=== PATIENT | female | born 1985 | race Hispanic/Latino ===

== ENCOUNTER 2016-10-20 14:49 | Emergency (ER) | payer OTHER ==
[2016-10-20 14:50] VITALS: BMI 32.5
[2016-10-20 15:02] VITALS: BP 96/60; PULSE 86; RESP 14; TEMP 97.9; O2SAT 97
--- NOTE | 2016-10-20 15:38 | ED PDOC ---
HPI: General Adult Time Seen by Provider: 10/20/16 14:55 Chief Complaint (Nursing): Abdominal Pain Chief Complaint (Provider): Requst for test History Per: Patient History/Exam Limitations: no limitations Additional Complaint(s): Marlena Castro is a 30 y/o female, with a past medical history of abnomral menses, presenting to the ER on 10/20/2016 with a request for a test. Patient reports she had normal menses September 06, followed by episodes of light bleeding from September 29-October 01. She states her bleeding stopped one day but then appeared again on October 09. Patient further states she believed to be after she took a test two weeks ago. However, she took a repeat test three days ago which came back negative. Today, she requests to have another test performed to see if shes . She denies any fever, nausea, vomiting or diarrhea, but notes having intermittent suprapubic discomfort. Patient currently does not have abdominal pain and did not take any pain medications prior to arrival. Past Medical History Reviewed: Historical Data, Nursing Documentation, Vital Signs Vital Signs: Last Vital Signs Temp 97.9 F 10/20/16 15:02 Pulse 86 10/20/16 15:02 Resp 14 10/20/16 15:02 BP 96/60 L 10/20/16 15:02 Pulse Ox 97 10/20/16 15:41 - Medical History Other PMH: abnormal menses - Surgical History Surgical History: No Surg Hx - Family History Family History: States: Unknown Family Hx - Social History Current smoker - smoking cessation education provided: No Alcohol: None Drugs: Denies - Home Medications Home Medications: Ambulatory Orders Medication Instructions Recorded Naproxen 500 mg PO BID #20 tab 09/14/15 - Allergies Allergies/Adverse Reactions: Allergies Allergy/AdvReac Type Severity Reaction Status Date / Time No Known Allergies Allergy Verified 01/25/14 12:44 Review of Systems ROS Statement: Except As Marked, All Systems Reviewed And Found Negative Constitutional: Negative for: Fever Gastrointestinal: Negative for: Nausea, Vomiting, Diarrhea Physical Exam - Reviewed Nursing Documentation Reviewed: Yes Vital Signs Reviewed: Yes - Physical Exam Appears: Positive for: Non-toxic, No Acute Distress Head Exam: Positive for: ATRAUMATIC, NORMOCEPHALIC Skin: Positive for: Normal Color. Negative for: Rash Eye Exam: Positive for: Normal appearance Neck: Positive for: Normal Cardiovascular/Chest: Positive for: Regular Rate, Rhythm. Negative for: Murmur Respiratory: Positive for: Normal Breath Sounds. Negative for: Respiratory Distress Gastrointestinal/Abdominal: Positive for: Normal Exam, Soft. Negative for: Tenderness Extremity: Positive for: Normal ROM. Negative for: Deformity, Swelling Neurologic/Psych: Positive for: Alert, Oriented. Negative for: Motor/Sensory Deficits - ECG O2 Sat by Pulse Oximetry: 97 Medical Decision Making Medical Decision Makin:55 Initial Impression- 30 y/o female with request for test Initial Plan- * Urine * Urine Dip UPreg and UDip reviewed, both show no acute findings. Pt is stable for routine discharge. Advised pt to schedule a follow-up with her OBGYN within 2-3 days. Clinical Impression- Abnormal menses Documented by Rachelle Terrell, acting as a scribe for Мария Rojas PA-C All medical record entries made by the Scribe were at my direction and personally dictated by me. I have reviewed the chart and agree that the record accurately reflects my personal performance of the history, physical exam, medical decision making, and the department course for this patient. I have also personally directed, reviewed, and agree with the discharge instructions and disposition. Disposition - Clinical Impression Clinical Impression: Abnormal menses - Disposition Disposition: Routine/Home Disposition Time: 16:42 Condition: STABLE Additional Instructions: Please follow-up with ANALYTICAL STRATEGIST. Instructions: Menorrhagia (ED) Forms: [facility] (Occitan)
== END 2016-10-20 16:11 | disposition home or self-care (01) ==
LOC: H.ER 14:49
DX: N92.6 Irregular menstruation, unspecified (principal)

== ENCOUNTER 2017-12-22 03:04 | Emergency (ER) | payer OTHER ==
[2017-12-22 03:14] VITALS: BP 121/71; PULSE 75; RESP 18; TEMP 99.1; O2SAT 100
[2017-12-22] MEDS ORDERED: Simethicone 80 mg Chewtab PO STA (03:50)
--- NOTE | 2017-12-22 04:12 | ED PDOC ---
HPI: Abdomen Time Seen by Provider: 12/22/17 03:14 Chief Complaint (Nursing): Abdominal Pain Chief Complaint (Provider): Back pain, abdominal pain History Per: Patient History/Exam Limitations: no limitations Onset/Duration Of Symptoms: Hrs (today) Location Of Pain/Discomfort: RUQ Quality Of Discomfort: Sharp Additional Complaint(s): Marlena Castro, a 32 year old female with past medical history of cholecystectomy, presents to the emergency room with back pain and RUQ pain. Patient states she woke up in the middle of the night with right upper back pain and RUQ pain she describes as sharp and wanted to vomit but didn't. She endorses constipation and is seeing a gastroenterolgoist for it, denies fever, diarrhea or urinary symptoms. No further medical complaints Past Medical History Reviewed: Historical Data, Nursing Documentation, Vital Signs Vital Signs: Last Vital Signs Temp 99.1 F 12/22/17 03:11 Pulse 75 12/22/17 03:11 Resp 18 12/22/17 03:11 BP 121/71 12/22/17 03:11 Pulse Ox 100 12/22/17 03:11 - Medical History PMH: Gastritis, Gall Bladder Disease, TIA (2015/DUE TO CONTROL IMPLANON/PER PT.) Denies: Chronic Kidney Disease - Surgical History Surgical History: Cholecystectomy (lap arvin 12/19/2016) - Family History Family History: States: Unknown Family Hx - Home Medications Home Medications: Ambulatory Orders Medication Instructions Recorded Docusate [Colace] 1 tab PO Q6 PRN 12/26/16 oxyCODONE/Acetaminophen [Percocet 1 tab PO Q8 PRN 12/26/16 5/325 mg Tab] Docusate Sodium [Dulcolax Stool 100 mg PO DAILY #12 capsule 12/22/17 Softener] Sod Phos,M-B/Na Phos,Di-Ba [Fleet 133 ml RC DAILY #5 enema 12/22/17 Enema] - Allergies Allergies/Adverse Reactions: Allergies Allergy/AdvReac Type Severity Reaction Status Date / Time Iodinated Contrast- Oral and Allergy Intermediate RASH Verified 12/26/16 17:24 IV Dye Review of Systems ROS Statement: Except As Marked, All Systems Reviewed And Found Negative Constitutional: Negative for: Fever Gastrointestinal: Positive for: Abdominal Pain (RUQ). Negative for: Vomiting (felt she had to but didn't), Diarrhea, Constipation Genitourinary Female: Negative for: Dysuria, Frequency, Incontinence, Hematuria Musculoskeletal: Positive for: Back Pain (right upper) Physical Exam - Reviewed Nursing Documentation Reviewed: Yes Vital Signs Reviewed: Yes - Physical Exam Appears: Positive for: Well, Non-toxic, No Acute Distress Head Exam: Positive for: ATRAUMATIC, NORMAL INSPECTION, NORMOCEPHALIC Skin: Positive for: Normal Color, Warm, DRY Eye Exam: Positive for: EOMI, Normal appearance, PERRL ENT: Positive for: Normal ENT Inspection Neck: Positive for: Normal, Painless ROM Cardiovascular/Chest: Positive for: Regular Rate, Rhythm Respiratory: Positive for: Normal Breath Sounds. Negative for: Respiratory Distress Gastrointestinal/Abdominal: Positive for: Tenderness (right flank, RUQ). Negative for: Guarding, Rebound Back: Positive for: Other (right upper back tenderness) Extremity: Positive for: Normal ROM Neurologic/Psych: Positive for: Alert, Oriented - ECG O2 Sat by Pulse Oximetry: 100 (RA) Pulse Ox Interpretation: Normal Medical Decision Making Medical Decision Making: Time: 3:14 A/P: patient s/p cholecystectomy presenting with abdominal pain, not having obstructive symptoms, possible gas vs musculoskeletal pain, less likely kidney stones --Urine --Urine dipstick --Obstructive series --Motrin 600 mg PO --Mylicon 80 mg PO 545AM --Patient had BM and felt a lot better --Xray shows stool burden --Will discharge with stool softener and enema --Advised to followup with Dr. Georges and GI Scribe Attestation: Documented by Valerie Acuña, acting as a scribe for Luigi Foreman MD. Provider Scribe Attestation: All medical record entries made by the Scribe were at my direction and personally dictated by me. I have reviewed the chart and agree that the record accurately reflects my personal performance of the history, physical exam, medical decision making, and the department course for this patient. I have also personally directed, reviewed, and agree with the discharge instructions and disposition. Disposition - Clinical Impression Clinical Impression: Constipation - Patient ED Disposition Is Patient to be Admitted: No - Disposition Referrals: Jovi Georges MD [Family Provider] - Disposition: Routine/Home Disposition Time: 05:49 Condition: IMPROVED Prescriptions: Docusate Sodium [Dulcolax Stool Softener] 100 mg PO DAILY #12 capsule Sod Phos,M-B/Na Phos,Di-Ba [Fleet Enema] 133 ml RC DAILY #5 enema Instructions: Constipation in Adults Forms: [facility] (Mosotho), [facility] School/Work Excuse Print Language: CITIZEN OF [place]
--- NOTE | 2017-12-22 10:00 | RAD ---
Date of service: 12/22/2017 PROCEDURE: Radiographs of the chest and abdomen (obstructive series) HISTORY: RUQ pain, back pain, hx of cholecystectomy COMPARISON: No prior. TECHNIQUE: AP radiograph of the chest, with upright and supine radiographs of the abdomen. FINDINGS: CHEST: Lungs: Clear. Cardiovascular: Normal size heart. No pulmonary vascular congestion. Pleura: No pleural fluid. No pneumothorax. Other findings: None. ABDOMEN AND PELVIS: Bowel: Unremarkable bowel gas pattern. No evidence of mechanical obstruction. Free air: None. Bones: Unremarkable. Other findings: No abnormal intra-abdominal calcifications identified. IMPRESSION: Unremarkable radiographs of chest and abdomen. No evidence of mechanical bowel obstruction.
== END 2017-12-22 06:22 | disposition home or self-care (01) ==
LOC: H.ER 03:04
DX: K59.00 Constipation, unspecified (principal)

== ENCOUNTER 2018-07-23 16:51 | Emergency (ER) | payer OTHER ==
[2018-07-23 17:45] VITALS: BP 105/70; PULSE 94; RESP 16; TEMP 98.4; O2SAT 99; BMI 32.2
--- NOTE | 2018-07-23 18:09 | ED PDOC ---
HPI: Headache Time Seen by Provider: 07/23/18 17:54 Chief Complaint (Nursing): Headache Chief Complaint (Provider): Headache History Per: Patient History/Exam Limitations: no limitations Onset/Duration Of Symptoms: Days (x3) Current Symptoms Are (Timing): Still Present Additional Complaint(s): Patient is a 32 y/o female with no significant PMHx who presents to the ED for evaluation of a headache for the past three days, primarily on the left side of her head, from eye to neck. Patient complains of associative symptoms including photophobia and throat pain. patient reports she has been taking Motrin 800 with relief, last dose this morning. Patient indicated the pain comes and goes but has been continuous since 13:00 today, thus, prompting her ED visit. Pt also notes she used to get migraines that feel similar to this. Patient denies vision changes, decrease in appetite, urinary symptoms, nausea or vomiting, fever, and cough. She is currently in the ER with her son who has been sick and she is stressed. PCP: None Provided Past Medical History Reviewed: Historical Data, Nursing Documentation, Vital Signs Vital Signs: Last Vital Signs Temp 98.4 F 07/23/18 17:45 Pulse 94 H 07/23/18 17:45 Resp 16 07/23/18 17:45 BP 105/70 07/23/18 17:45 Pulse Ox 99 07/23/18 17:45 Primary Care Provider: Sylvia Garcia - Medical History PMH: Gastritis, Gall Bladder Disease, TIA (2015/DUE TO CONTROL IMPLANON/PER PT.) Denies: Chronic Kidney Disease - Surgical History Surgical History: Cholecystectomy (lap arvin 12/19/2016) - Family History Family History: States: Unknown Family Hx - Home Medications Home Medications: Ambulatory Orders Medication Instructions Recorded Docusate [Colace] 1 tab PO Q6 PRN 12/26/16 oxyCODONE/Acetaminophen [Percocet 1 tab PO Q8 PRN 12/26/16 5/325 mg Tab] Docusate Sodium [Dulcolax Stool 100 mg PO DAILY #12 capsule 12/22/17 Softener] Sod Phos,M-B/Na Phos,Di-Ba [Fleet 133 ml RC DAILY #5 enema 12/22/17 Enema] - Allergies Allergies/Adverse Reactions: Allergies Allergy/AdvReac Type Severity Reaction Status Date / Time Iodinated Contrast- Oral and Allergy Intermediate RASH Verified 07/23/18 17:44 IV Dye Review of Systems ROS Statement: Except As Marked, All Systems Reviewed And Found Negative Constitutional: Negative for: Fever, Other (decrease in appetite) Eyes: Positive for: Pain. Negative for: Vision Change ENT: Positive for: Throat Pain Respiratory: Negative for: Cough Genitourinary Female: Negative for: Dysuria, Frequency, Incontinence, Hematuria Musculoskeletal: Positive for: Neck Pain Physical Exam - Reviewed Nursing Documentation Reviewed: Yes Vital Signs Reviewed: Yes - Physical Exam Comments: GENERAL APPEARANCE: Patient is awake, alert, oriented x 3, in no acute distress. SKIN: Warm, dry; (-) cyanosis; (-) rash. HEAD: (-) scalp swelling or tenderness, (-) temporal artery tenderness. EYES: (-) conjunctival pallor, (-) scleral icterus. ENMT: (+) mild posterior pharyngeal erythema, (-) tonsillar swelling, (-) tonsillar exudates, (-) sinus tenderness; mucous membranes are moist. NECK: (-) tenderness, (-) stiffness, (-) meningismus, (-) lymphadenopathy. (+)FROM CHEST AND RESPIRATORY: (-) rales, (-) rhonchi, (-) wheezes; breath sounds equal bilaterally. HEART AND CARDIOVASCULAR: (-) irregularity; (-) murmur, (-) gallop. ABDOMEN AND GI: Soft; (-) tenderness. EXTREMITIES: (-) deformity. NEURO AND PSYCH: Mental status as above. a r collections rep: Pupils equal and reactive; EOMI; (-) facial asymmetry; tongue and uvula midline. Finger to nose intact. Steady gait. Strength and DTRs symmetric. Babinski normal bilaterally. - ECG O2 Sat by Pulse Oximetry: 99 (RA) Pulse Ox Interpretation: Normal Medical Decision Making Medical Decision Making: Time: 1800 Impression: Headache; Possible Migraine Plan: Toradol 30 mg IM Rapid Strep Group A Antigen Pt's 4yo son is a pt and she has to drive home later, pt wants a quick treatment, does not want IV and wants to go back to her son quickly, unable to give pt full migraine/headache cocktail, will give her toradol and re eval 19:15 re eval, strep is neg, pt reports headache is gone now, still some throat pain, possible start of viral infection, or pt notes she is stressed as her son is sick and now has to stay in the hospital Discussed results, diagnosis, treatment, return precautions and f/u with pt who is understanding, in agreement and stable for dc Scribe Attestation: Documented by Joseph Nails, acting as a scribe for Balwinder Talley PA-C. Provider Scribe Attestation: All medical record entries made by the Scribe were at my direction and personally dictated by me. I have reviewed the chart and agree that the record accurately reflects my personal performance of the history, physical exam, medical decision making, and the department course for this patient. I have also personally directed, reviewed, and agree with the discharge instructions and disposition. Disposition - Clinical Impression Clinical Impression: Headache, Pharyngitis - Patient ED Disposition Is Patient to be Admitted: No Counseled Patient/Family Regarding: Studies Performed, Diagnosis, Need For Followup - Disposition Referrals: [facility] [Outside] Disposition: Routine/Home Disposition Time: 19:18 Condition: IMPROVED Additional Instructions: Thank you for letting us take care of you today. The emergency medical care you received today was directed at your acute symptoms. If you were prescribed any medication, please fill it and take as directed. It may take several days for your symptoms to resolve. Return to the Emergency Department if your symptoms worsen, do not improve, or if you have any other problems. Please contact your doctor in 2 days for re-evaluation and follow up / or call one of the physicians/clinics you have been referred to that are listed on the Patient Visit Information form that is included in your discharge packet. Bring any paperwork you were given at discharge with you along with any medications you are taking to your follow up visit. Our treatment cannot replace ongoing medical care by a primary care provider (PCP) outside of the emergency department. Instructions: Viral Pharyngitis, Headache, Adult Forms: [facility] (Danish) Print Language: FRENCH - POA Present On Arrival: None
== END 2018-07-23 19:45 | disposition home or self-care (01) ==
LOC: H.ER 16:51
DX: R51 Headache (principal); J02.9 Acute pharyngitis, unspecified; Z86.73 Personal history of transient ischemic attack (TIA), and cerebral infarction without residual deficits; Z88.8 Allergy status to other drugs, medicaments and biological substances
CPT/HCPCS: 81025; 87070; 87430; 96372; 99284; J1885